=== PATIENT | female | born 1985 ===

== ENCOUNTER 2016-10-25 09:02 | Outpatient (CLI) | payer OTHER | END 2016-10-25 09:03 | LOC: LABRHC 09:02 | PROVIDERS: ATTEND Family Medicine | DX: R30.0 Dysuria (principal) | CPT/HCPCS: 87086; 87186 ==

== ENCOUNTER 2017-04-15 17:33 | Outpatient (CLI) | payer OTHER ==
[2017-04-15 17:43] LABS: BASOPHILS % 0.5 (0.0-1.5); EOSINOPHILS % 0.9 % (0.0-6.8); MEAN CORPUSCULAR HEMOGLOBIN 30.4 pg (28.0-34.0); MEAN CORPUSCULAR VOLUME 89.5 fl (80.0-100.0); MONOCYTES % 4.1 % (0.0-11.0); NEUTROPHILS # 6.6 # k/uL (1.4-7.7)
== END 2017-04-15 17:34 ==
LOC: LAB 17:33
PROVIDERS: ATTEND Physician Assistant
DX: R50.9 Fever, unspecified (principal)
CPT/HCPCS: 36415; 85025

== ENCOUNTER 2018-06-02 16:25 | Outpatient (CLI) | payer OTHER | END 2018-06-02 16:26 | LOC: LABRHC 16:25 | PROVIDERS: ATTEND Family Medicine | DX: N39.0 Urinary tract infection, site not specified (principal) | CPT/HCPCS: 87086; 87186 ==